=== PATIENT | male | born 1995 | race Two or more races ===

== ENCOUNTER 2018-06-13 02:32 | Emergency (ER) | payer OTHER ==
[~2018-06-13] VITALS: Ht 172.7 cm; Wt 81.6 kg
[2018-06-13 04:01] VITALS: BP 146/79
== END 2018-06-13 04:52 | disposition home or self-care (01) ==
LOC: ER 02:32
DX: S00.83XA Contusion of other part of head, initial encounter (principal); S09.90XA Unspecified injury of head, initial encounter; Y08.89XA Assault by other specified means, initial encounter; Y93.89 Activity, other specified; Y99.8 Other external cause status; Y92.89 Other specified places as the place of occurrence of the external cause
CPT/HCPCS: 70450; 70486